=== PATIENT | female | born 1970 | race Caucasian/White ===

== ENCOUNTER 2019-10-03 13:47 | Emergency (ER) | payer OTHER, BC ==
[2019-10-03] MEDS ORDERED: Sodium Chloride 0.9% 10 ML Syringe FLUSH PRN (14:29)
[2019-10-03] MEDS ORDERED: Ketorolac 30 MG/ML SDV IVPUSH ONE (14:31)
[2019-10-03] MEDS ORDERED: HYDROmorphone 1 MG/ML Syringe IVPUSH ONE (14:31)
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
[2019-10-03] MEDS ORDERED: HYDROmorphone 1 MG/ML Syringe IM ONE ×2 (15:04→17:33)
[2019-10-03] MEDS ORDERED: Ketorolac 30 MG/ML SDV IM ONE (15:06)
--- NOTE | 2019-10-03 15:35 | CT ---
CT thoracic spine Technique: Multiple axial sections through the thoracic spine were obtained. Reconstructed coronal and sagittal images were obtained. Findings: Endplate concavity is seen within T12 involving the superior endplate. This could possibly be acute but MRI would be needed to confirm. No fractures are seen within the posterior elements at this level. Other vertebral body heights are maintained within the thoracic spine. No other findings suspicious for fracture are seen. No abnormal subluxation is appreciated. Impression: 1. Endplate concavity within superior T12 vertebral body possibly representing an acute endplate fracture. MRI would be needed to confirm if clinically indicated. This fracture appears stable as no fractures are seen within the posterior elements. 2. Other portions of the thoracic spine show no additional fracture or subluxation. Diagnostic code #3 This report was dictated in [place] Standard Time
--- NOTE | 2019-10-03 15:35 | CT ---
CT lumbar spine Technique: Multiple axial sections were obtained through the lumbar spine. Reconstructed coronal and sagittal images were reviewed. Findings: Vertebral body heights and disc spaces are maintained. Mild degenerative apophyseal change is seen. Mild disc space narrowing is noted at L2-L3. Other disc spaces are preserved. No fracture is appreciated within the lumbar spine. No focal disc herniation is appreciated. No central canal stenosis or neural foraminal stenosis is seen. Impression: 1. Mild degenerative change. 2. Nothing acute is appreciated on CT study of the lumbar spine. Diagnostic code #2 This report was dictated in [place] Standard Time
--- NOTE | 2019-10-03 17:10 | MR ---
MRI thoracic spine Technique: T1, T2 and fat suppressed inversion recovery sagittal images were obtained. T2-weighted axial images were obtained at each disc interspace as well as additional T1 and T2-weighted axial images through the lower thoracic spine. Findings: Endplate concavity superiorly within T12 is noted. This shows bone marrow edema and is therefore felt to be fairly acute. There is a small disc bulge at T7-8 to the left of midline. Other disks within the thoracic spine are maintained. Thoracic cord shows no abnormal signal or mass. Degenerative change partially visualized within the lower cervical spine with disc space narrowing and mild disc bulging. Impression: 1. Bone marrow edema within the superior T12 vertebral body in area of previous compression deformity involving the superior endplate of T12 which is therefore felt to be fairly acute. 2. No other areas of bone marrow edema are seen. 3. Slight disc bulge noted to the left of midline at T7-8. Diagnostic code #3 This report was dictated in [place] Standard Time
[2019-10-03 18:08] VITALS: BP 122/75; PULSE 94
== END 2019-10-03 18:00 | disposition home or self-care (01) ==
LOC: JD.ED 13:47
DX: S22.088A Other fracture of T11-T12 vertebra, initial encounter for closed fracture (principal); Z88.0 Allergy status to penicillin; Z88.4 Allergy status to anesthetic agent; V43.52XA Car driver injured in collision with other type car in traffic accident, initial encounter; Y92.410 Unspecified street and highway as the place of occurrence of the external cause
CPT/HCPCS: 36415; 72128; 72131; 72146; 80053; 80306; 80307; 81001; 85025; 96372; 99284; J1170; J1885